=== PATIENT | male | born 1955 | race American Indian/Alaskan Native ===

== ENCOUNTER 2017-03-09 10:54 | Emergency (ER) | payer MEDICAID ==
[2017-03-09 10:58] VITALS: BMI 18.8
[2017-03-09] MEDS ORDERED: Magnesium Sulfate 2 GM in Sodium Chloride 0.9% 100 ML IVPB ONE (11:14)
[2017-03-09] MEDS: Albuterol-Ipratrop 3 mg / 0.5 (3 ml) UD IH SCH ×3 (11:23→11:59)
--- NOTE | 2017-03-09 11:24 | ED PDOC ---
Arrival/HPI - General Chief Complaint: Shortness Of Breath Time Seen by Provider: 03/09/17 10:55 Historian: Patient - History of Present Illness Narrative History of Present Illness (Text): 03/09/17 11:11 A 61 year old male, whose past medical history includes COPD, presents to the emergency department complaining of shortness of breath. Patient reports he was at [facility] yesterday for the same complaint. He says he was given Solu-medrol and Duoneb treatment and Mag and discharged home. Patient states that today he decided to have a cigarette, after which his shortness of breath began again. He notes symptoms are identical to previous COPD exacerbation. He notes a mild post-tussive chest pain but denies any other chest pain, fever, chills, or any other complaints. Patient mentions he did take his 40mg Prednisone this morning and has been using his nebulizer with only mild relief. Time/Duration: Other (yesterday evening) Symptom Onset: Sudden Symptom Course: Unchanged Quality: Other Activities at Onset: Rest Context: Home Past Medical History - Provider Review Nursing Documentation Reviewed: Yes - Infectious Disease Hx of Infectious Diseases: None - Pulmonary Hx Chronic Obstructive Pulmonary Disease (COPD): Yes Other/Comment: current smoker - Musculoskeletal/Rheumatological Hx Back Pain: Yes - Psychiatric Hx Substance Use: No - Anesthesia Hx Anesthesia: No Family/Social History - Physician Review Nursing Documentation Reviewed: Yes Family/Social History: Unknown Family HX Smoking Status: Light Smoker < 10 Cigarettes Daily Hx Alcohol Use: No Hx Substance Use: No Allergies/Home Meds Allergies/Adverse Reactions: Allergies No Known Allergies Allergy (Verified 03/09/17 10:58) Home Medications: Home Meds Medication Instructions Recorded Confirmed Albuterol/Ipratropium [Combivent 1 puff IH DAILY 03/09/17 03/09/17 Respimat] Fluticasone/Salmeterol 500/50 1 puff IH DAILY 03/09/17 03/09/17 [Advair Diskus 500/50] Montelukast [Singulair] 1 tab PO DAILY 03/09/17 03/09/17 Prednisone [Deltasone] 40 mg PO DAILY 03/09/17 03/09/17 Tiotropium [Spiriva] 1 puff IH DAILY 03/09/17 03/09/17 oxyCODONE/Acetaminophen [Percocet 1 tab PO Q4H PRN 03/09/17 03/09/17 5/325 mg Tab] Review of Systems - Review of Systems Constitutional: absent: Fevers Eyes: absent: Vision Changes ENT: absent: Sinus Congestion Respiratory: SOB, Cough, Wheezing. absent: Sputum Cardiovascular: Chest Pain. absent: Palpitations, Edema, Calf Pain, TURNER, Orthopnea, Syncope Gastrointestinal: absent: Abdominal Pain, Constipation, Diarrhea, Nausea, Vomiting Genitourinary Male: absent: Dysuria Musculoskeletal: absent: Back Pain Skin: absent: Rash Neurological: absent: Headache, Dizziness Endocrine: absent: Diaphoresis, Polyuria Psychiatric: absent: Depression Physical Exam Vital Signs Reviewed: Yes Vital Signs Temp Pulse Resp BP Pulse Ox 03/09/17 13:32 97 H 18 119/79 100 03/09/17 12:47 100 H 18 132/70 95 03/09/17 11:07 22 98 03/09/17 11:00 97.5 F L 110 H 22 134/63 98 Temperature: Afebrile Blood Pressure: Normal Pulse: Tachycardic Respiratory Rate: Normal Appearance: Positive for: Well-Appearing, Non-Toxic, Comfortable Pain Distress: None Mental Status: Positive for: Alert and Oriented X 3 - Systems Exam Head: Present: Atraumatic, Normocephalic Pupils: Present: PERRL Extroacular Muscles: Present: EOMI Conjunctiva: Present: Normal Mouth: Present: Moist Mucous Membranes Neck: Present: Normal Range of Motion Respiratory/Chest: Present: Clear to Auscultation, Good Air Exchange, Wheezes ( diffuse). No: Respiratory Distress, Accessory Muscle Use Cardiovascular: Present: Normal S1, S2, Tachycardic. No: Murmurs Abdomen: Present: Normal Bowel Sounds. No: Tenderness, Distention, Peritoneal Signs Back: Present: Normal Inspection Upper Extremity: Present: Normal Inspection. No: Cyanosis, Edema Lower Extremity: Present: Normal Inspection. No: Edema Neurological: Present: GCS=15, CN II-XII Intact, Speech Normal Skin: Present: Warm, Dry, Normal Color. No: Rashes Psychiatric: Present: Alert, Oriented x 3, Normal Insight, Normal Concentration Medical Decision Making ED Course and Treatment: 03/09/17 11:11 Impression: A 61 year old male with shortness of breath. On physical examination the patient has diffuse wheezing Differential Diagnosis include but are not limited to: COPD exacerbation Plan: -- EKG -- Chest X-ray -- Duoneb and Magnesium Sulfate (already had prednisone today) -- Reassess and disposition 03/09/17 13:27 After 4 duonebs and Mg, wheezing is resolved and patient feels better. He is speaking in complete sentences and has no tachypnea and normal O2 sat. He reports that he wants to go home. Cxray negative. Patient has prednisone rx at home. He was instructed to stop smoking. 03/09/17 14:26 03/09/17 14:27 - RAD Interpretation Radiology Orders: 03/09/17 11:14 CHEST PORTABLE [RAD] Stat - Medication Orders Current Medication Orders: Discontinued Medications Albuterol/Ipratropium (Duoneb 3 Mg/0.5 Mg (3 Ml) Ud) 3 ml IH Q15M CLARE Stop: 03/09/17 11:46 Last Admin: 03/09/17 11:59 Dose: 3 ml Magnesium Sulfate 2 gm/ Sodium (Chloride) 104 mls @ 102 mls/hr IVPB ONCE ONE Stop: 03/09/17 12:15 Last Admin: 03/09/17 11:40 Dose: 102 mls/hr ED OBSERVATION Discharge: Yes Date of observation admission: 03/09/17 Time of observation admission: 11:11 - Observation admission statement Patient is being placed in observation because:: Shortness of breath - Goals of Observation Goals of observation are:: symptomatic control - Progress Note Progress Note: 03/09/17 11:12 Smoking Cessation Counseling: The patient was counseled as to the multiple risks to his/her health from continued use of tobacco products. It was explained that continuing to smoke may lead to multiple short and senior care negative health consequences, including but not limited to mouth/esophageal/ lung cancer, COPD, and heart disease. He/she states he/she understands these risks, and also understands the options and resources available to him/her to help him/her stop smoking. Nicotine replacement therapy, local hotlines, and local resources were discussed as viable options for helping him/her stop his/ her tobacco use. The total time spent counseling the patient regarding tobacco cessation was 4 minutes. 03/09/17 11:50 Chest X-ray: Creator : Deon Mike MD COMPARISON: No prior. FINDINGS: LUNGS: No active pulmonary disease. PLEURA: No significant pleural effusion identified, no pneumothorax apparent. CARDIOVASCULAR: Normal. OSSEOUS STRUCTURES: No significant abnormalities. VISUALIZED UPPER ABDOMEN: Normal. OTHER FINDINGS: None. IMPRESSION: No active disease. - Scribe Statement The provider has reviewed the documentation as recorded by the Montyibe Sony Dixon Provider Scribe Attestation: All medical record entries made by the Scribe were at my direction and personally dictated by me. I have reviewed the chart and agree that the record accurately reflects my personal performance of the history, physical exam, medical decision making, and the department course for this patient. I have also personally directed, reviewed, and agree with the discharge instructions and disposition. Disposition/Present on Arrival - Present on Arrival Any Indicators Present on Arrival: No History of DVT/PE: No History of Uncontrolled Diabetes: No Urinary Catheter: No History of Decub. Ulcer: No History Surgical Site Infection Following: None - Disposition Have Diagnosis and Disposition been Completed?: Yes Diagnosis: COPD (chronic obstructive pulmonary disease) Disposition: HOME/ ROUTINE Disposition Time: 11:11 Patient Plan: Discharge Condition: GOOD Discharge Instructions (ExitCare): How to Stop Smoking (ED), COPD (Chronic Obstructive Pulmonary Disease) (ED) Additional Instructions: Take prednisone as prescribed. use albuterol as needed. Return to emergency department if condition worsens. Follow-up with PMD within 2 days. Stop smoking.
[2017-03-09 11:35] VITALS: TEMP 97.5
--- NOTE | 2017-03-09 12:45 | RAD ---
HISTORY: shortness of breath COMPARISON: No prior. FINDINGS: LUNGS: No active pulmonary disease. PLEURA: No significant pleural effusion identified, no pneumothorax apparent. CARDIOVASCULAR: Normal. OSSEOUS STRUCTURES: No significant abnormalities. VISUALIZED UPPER ABDOMEN: Normal. OTHER FINDINGS: None. IMPRESSION: No active disease.
[2017-03-09 12:48] VITALS: RESP 18
[2017-03-09 13:33] VITALS: BP 119/79; PULSE 97; O2SAT 100
--- NOTE | 2017-03-10 10:10 | CARD ---
APPROVED REPORT EKG Measurement Heart [id number] [id number] <Conclusion> Sinus tachycardia Biatrial enlargement NSSTW changes
== END 2017-03-09 13:37 | disposition home or self-care (01) ==
LOC: MERGE 10:54 → ED 10:54
DX: J44.9 Chronic obstructive pulmonary disease, unspecified (principal); Z72.0 Tobacco use
CPT/HCPCS: 71010; 93005; 96365; 99285; J3475

== ENCOUNTER 2018-03-14 12:46 | Emergency (ER) | payer MEDICAID, OTHER ==
[2018-03-14 12:47] VITALS: BMI 18.8
--- NOTE | 2018-03-14 13:04 | ED PDOC ---
Arrival/HPI - General Chief Complaint: Shortness Of Breath Time Seen by Provider: 03/14/18 12:55 Historian: Patient - History of Present Illness Narrative History of Present Illness (Text): 03/14/18 13:01 62 year old male, whose past medical history includes COPD and a hx of intubation, who presents to the emergency department complaining of shortness of breath upon exertion. Patient notes associated nasal congestion and chills. Patient denies any fever, chest pain, shortness of breath, nausea, vomiting, diarrhea, urinary symptoms, neck pain, headache, dizziness, or any other complaints. PMD: Dr. Gregory Jose Time/Duration: Other (today) Symptom Onset: Gradual Symptom Course: Unchanged Activities at Onset: Light Context: Home Past Medical History - Provider Review Nursing Documentation Reviewed: Yes - Infectious Disease Hx of Infectious Diseases: None - Cardiac Hx Hypertension: Yes - Pulmonary Hx Chronic Obstructive Pulmonary Disease (COPD): Yes Other/Comment: current smoker - Endocrine/Metabolic Hx Endocrine Disorders: Yes Hx Diabetes Mellitus Type 2: Yes - Musculoskeletal/Rheumatological Hx Back Pain: Yes - Psychiatric Hx Substance Use: No - Anesthesia Hx Anesthesia: No Hx Anesthesia Reactions: No Hx Malignant Hyperthermia: No - Suicidal Assessment Feels Threatened In Home Enviroment: No Family/Social History - Physician Review Nursing Documentation Reviewed: Yes Family/Social History: Unknown Family HX Smoking Status: Light Smoker < 10 Cigarettes Daily Hx Alcohol Use: No Hx Substance Use: No Substance used: cocaine Allergies/Home Meds Allergies/Adverse Reactions: Allergies No Known Allergies Allergy (Verified 03/01/16 07:31) Home Medications: Home Meds Medication Instructions Recorded Confirmed Symbicort 10.2 ml 06/12/13 05/24/15 Albuterol/Ipratropium [Combivent 1 puff IH DAILY 03/09/17 03/09/17 Respimat] Fluticasone/Salmeterol 500/50 1 puff IH DAILY 03/09/17 03/09/17 [Advair Diskus 500/50] Montelukast [Singulair] 1 tab PO DAILY 03/09/17 03/09/17 Prednisone [Deltasone] 40 mg PO DAILY 03/09/17 03/09/17 Tiotropium [Spiriva] 1 puff IH DAILY 03/09/17 03/09/17 oxyCODONE/Acetaminophen [Percocet 1 tab PO Q4H PRN 03/09/17 03/09/17 5/325 mg Tab] Review of Systems - Physician Review All systems were reviewed & negative as marked: Yes - Review of Systems Constitutional: Normal Eyes: Normal ENT: Sinus Congestion Respiratory: SOB Cardiovascular: Normal. absent: Chest Pain, Palpitations Gastrointestinal: Normal. absent: Abdominal Pain, Diarrhea, Nausea, Vomiting Genitourinary Male: Normal. absent: Dysuria, Frequency Musculoskeletal: Back Pain (from herniated disc (old)). absent: Neck Pain Skin: Normal. absent: Rash Neurological: Normal. absent: Headache, Dizziness Endocrine: Normal Hemo/Lymphatic: Normal Psychiatric: Normal Physical Exam Vital Signs Temp Pulse Resp BP Pulse Ox 03/14/18 15:20 98.4 F 98 H 20 106/64 98 03/14/18 13:02 97.7 F 98 H 19 109/74 100 03/14/18 13:00 20 - Systems Exam Head: Present: Atraumatic, Normocephalic Pupils: Present: PERRL Extroacular Muscles: Present: EOMI Conjunctiva: Present: Normal Mouth: Present: Moist Mucous Membranes Neck: Present: Normal Range of Motion. No: Meningeal Signs, MIDLINE TENDERNESS Respiratory/Chest: Present: Wheezes (diffused wheezing). No: Respiratory Distress, Accessory Muscle Use Cardiovascular: Present: Regular Rate and Rhythm, Normal S1, S2. No: Murmurs Abdomen: No: Tenderness, Distention, Peritoneal Signs Back: Present: Normal Inspection Upper Extremity: Present: Normal Inspection. No: Cyanosis, Edema Lower Extremity: Present: Normal Inspection. No: Edema, CALF TENDERNESS Neurological: Present: GCS=15, CN II-XII Intact, Speech Normal Skin: Present: Warm, Dry, Normal Color. No: Rashes Psychiatric: Present: Alert, Oriented x 3, Normal Insight, Normal Concentration Medical Decision Making ED Course and Treatment: 03/14/18 13:04 Impression: 62 year old male presents to the emergency department complaining of shortness of breath, nasal congestion, and chills. Differential Diagnosis: COPD exacerbation Plan: -- EKG -- Labs -- Chest X-ray -- Duoneb -- SOLU-Medrol -- Reassess and disposition Progress Notes: EKG reviewed, shows Sinus Tachycardia [address]/T wave changes. 03/14/18 13:40 Chest X-ray reviewed, showed: IMPRESSION: No active disease. 03/14/18 14:48 Patient is feeling much better. 98-99% RA. No w/r/r. CTA b/l. Patient states he wants to go home. He was also given percocet one dose for his low back pain. - Lab Interpretations Lab Results: 03/14/18 13:20 03/14/18 13:20 Lab Results 03/14/18 13:20: Sodium 142, Potassium 4.6, Chloride 107, Carbon Dioxide 24, Anion Gap 15, BUN 37 H, Creatinine 1.2, Est GFR ( Amer) > 60, Est GFR ( Non-Af Amer) > 60, Random Glucose 135 H, Calcium 9.0, Magnesium 2.0 03/14/18 13:20: WBC 9.6, RBC 4.37, Hgb 10.8 L, Hct 33.3 L, MCV 76.2 L, MCH 24.7 L, MCHC 32.4, RDW 15.0 H, Plt Count 198, Gran % 76.8 H, Lymph % (Auto) 13.6 L, [place] % (Auto) 9.5 H, Eos % (Auto) 0.1 L, Baso % (Auto) 0.0, Gran # 7.36 H, Lymph # (Auto) 1.3, [place] # (Auto) 0.9 H, Eos # (Auto) 0.0, Baso # (Auto) 0.00 - RAD Interpretation Radiology Orders: 03/14/18 13:01 CHEST PORTABLE [RAD] Stat - Medication Orders Current Medication Orders: Discontinued Medications Albuterol/Ipratropium (Duoneb 3 Mg/0.5 Mg (3 Ml) Ud) 3 ml IH Q15M CLARE Stop: 03/14/18 13:46 Last Admin: 03/14/18 13:21 Dose: 3 ml Methylprednisolone (Solu-Medrol) 125 mg IVP STAT STA Stop: 03/14/18 13:02 Last Admin: 03/14/18 13:20 Dose: 125 mg IVP Administration Document 03/14/18 13:20 JENNI (Rec: 03/14/18 13:20 JENNI [id number]) Charges for Administration # of IVP Administrations 1 Oxycodone/Acetaminophen (Percocet 10/325 Mg Tab) 1 tab PO STAT STA Stop: 03/14/18 14:01 Last Admin: 03/14/18 14:16 Dose: 1 tab [facility] Pain Assessment Document 03/14/18 14:16 JENNI (Rec: 03/14/18 14:16 JENNI [id number]) Pain Reassessment Is this a pain reassessment? No Sleep Is patient sleeping during reassessment? Yes Pain Scale Used Pain Scale Used Numeric Description Description Intermittent Intensity of Pain at present 5 Re-Assess: [facility] Pain Assessment Document 03/14/18 15:16 JENNI (Rec: 03/14/18 15:30 JENNI [id number]) Pain Reassessment Is this a pain reassessment? Yes Sleep Is patient sleeping during reassessment? No Presence of Pain Presence of Pain No - Scribe Statement The provider has reviewed the documentation as recorded by the Scribe Kelli Sheikh All medical record entries made by the Scribe were at my direction and personally dictated by me. I have reviewed the chart and agree that the record accurately reflects my personal performance of the history, physical exam, medical decision making, and the department course for this patient. I have also personally directed, reviewed, and agree with the discharge instructions and disposition. Disposition/Present on Arrival - Present on Arrival Any Indicators Present on Arrival: No History of DVT/PE: No History of Uncontrolled Diabetes: No Urinary Catheter: No History of Decub. Ulcer: No History Surgical Site Infection Following: None - Disposition Have Diagnosis and Disposition been Completed?: Yes Diagnosis: COPD (chronic obstructive pulmonary disease) Disposition: HOME/ ROUTINE Disposition Time: 14:49 Patient Plan: Discharge Condition: IMPROVED Discharge Instructions (ExitCare): Chronic Obstructive Pulmonary Disease (COPD) , Including Emphysema Additional Instructions: RITU DAVIS, thank you for letting us take care of you today. Your provider was Brayan Paula DO and you were treated for COPD Exacerbation. The emergency medical care you received today was directed at your acute symptoms. If you were prescribed any medication, please fill it and take as directed. It may take several days for your symptoms to resolve. Return to the Emergency Department if your symptoms worsen, do not improve, or if you have any other problems. Please contact your doctor or call one of the physicians/clinics you have been referred to that are listed on the Patient Visit Information form that is included in your discharge packet. Bring any paperwork you were given at discharge with you along with any medications you are taking to your follow up visit. Our treatment cannot replace ongoing medical care by a primary care provider outside of the emergency department. Thank you for allowing the [facility] team to be part of your care today. If you had an X-Ray or CT scan: A Radiologist will review the ED reading if any change in treatment is needed we will contact you. If you had a blood, urine, or wound culture: It will take several days for the results, if any change in treatment is needed we will contact you. If you had an STI test: It will take 48 hours for the results. Please call after 1 week if you have not heard back. Prescriptions: Albuterol HFA [Ventolin HFA 90 mcg/actuation (8 g)] 2 puff IH Q4 #1 puff predniSONE [predniSONE Tab] 40 mg PO DAILY #8 tab Referrals: Gregory Jose JD, MD [Primary Care Provider] - Follow up with primary Forms: [employer] (Irish)
[2018-03-14 13:06] VITALS: PULSE 98
[2018-03-14] MEDS: Albuterol-Ipratrop 3 mg / 0.5 (3 ml) UD IH SCH ×2 (13:15→13:21)
[2018-03-14 13:25] LABS: EOS % 0.1 % (1.5-5.0); GRAN # 7.36 (1.4-6.5); GRAN % 76.8 % (50.0-68.0); HEMOGLOBIN 10.8 g/dL (14.0-18.0); LYMPH # 1.3 (1.2-3.4); LYMPH % 13.6 % (22.0-35.0); MEAN CELL VOLUME 76.2 fl (80.0-105.0); MEAN CORPUSCULAR HEMOGLOBIN 24.7 pg (25.0-35.0); MEAN CORPUSCULAR HGB CONC 32.4 g/dl (31.0-37.0); MONO # 0.9 (0.1-0.6); MONO % 9.5 % (1.0-6.0); PLATELET COUNT 198 10^3/uL (120.0-450.0); RBC 4.37 10^6/uL (3.5-6.1); WHITE BLOOD COUNT 9.6 10^3/ul (4.5-11.0)
[2018-03-14 13:35] LABS: BLOOD UREA NITROGEN 37 mg/dL (7-21); GFR AFRICAN-AMERICAN > 60; GFR NON-AFRICAN AMERICAN > 60
--- NOTE | 2018-03-14 13:39 | RAD ---
Date of service: 03/14/2018 HISTORY: copd r/o pna COMPARISON: 03/09/2017 FINDINGS: LUNGS: No active pulmonary disease. PLEURA: No significant pleural effusion identified, no pneumothorax apparent. CARDIOVASCULAR: Normal. OSSEOUS STRUCTURES: No significant abnormalities. VISUALIZED UPPER ABDOMEN: Normal. OTHER FINDINGS: None. IMPRESSION: No active disease.
[2018-03-14] MEDS ORDERED: Oxycodone/Acetaminophen 10/325 mg Tab PO STA (14:00)
[2018-03-14 15:28] VITALS: BP 106/64; RESP 20; TEMP 98.4; O2SAT 98
--- NOTE | 2018-03-14 19:56 | CARD ---
APPROVED REPORT Date of service: 03/14/2018 EKG Measurement Heart [id number] [place] 114P79 [id number] <Conclusion> Sinus tachycardia with premature supraventricular complexes Biatrial enlargement Abnormal ECG
== END 2018-03-14 15:32 | disposition home or self-care (01) ==
LOC: ED 12:46
DX: J44.9 Chronic obstructive pulmonary disease, unspecified (principal); E11.9 Type 2 diabetes mellitus without complications; I10 Essential (primary) hypertension; F17.210 Nicotine dependence, cigarettes, uncomplicated
CPT/HCPCS: 71045; 80048; 83735; 85025; 93005; 96374; 99284; J2930

== ENCOUNTER 2018-05-08 04:15 | Emergency (ER) | payer MEDICAID, OTHER ==
[2018-05-08 04:21] VITALS: BMI 20.5
[2018-05-08] MEDS ORDERED: Albuterol-Ipratrop 3 mg / 0.5 (3 ml) UD ONE (04:31)
[2018-05-08] MEDS ORDERED: Albuterol-Ipratrop 3 mg / 0.5 (3 ml) UD IH STA (04:31)
[2018-05-08 04:34] VITALS: RESP 18; TEMP 98
--- NOTE | 2018-05-08 04:37 | ED PDOC ---
Arrival/HPI - General Chief Complaint: Shortness Of Breath Time Seen by Provider: 05/08/18 04:24 Historian: Patient - History of Present Illness Narrative History of Present Illness (Text): 05/08/18 04:31 62 year old male, whose past medical history includes diabetes, hypertension, COPD, chronic back pain and herniated discs, presents to the emergency department with shortness of breath. Patient states he has had multiple intubations and is constantly short of breath. Patient was discharged from [facility] less than an hour ago, where he was given Solumedrol, magnesium, and duoneb. Patient states he felt shortness of breath again upon going home, so he called 911 again. Patient denies any fever, chills, headache, dizziness, abdominal pain, nausea, vomiting, diarrhea, back pain, neck pain, urinary/bowel changes, or any other complaint. Time/Duration: Prior to Arrival Symptom Onset: Gradual Symptom Course: Unchanged Past Medical History - Provider Review Nursing Documentation Reviewed: Yes - Infectious Disease Hx of Infectious Diseases: None - Cardiac Hx Hypertension: Yes - Pulmonary Hx Chronic Obstructive Pulmonary Disease (COPD): Yes Other/Comment: current smoker - Endocrine/Metabolic Hx Endocrine Disorders: Yes Hx Diabetes Mellitus Type 2: Yes - Musculoskeletal/Rheumatological Hx Back Pain: Yes - Psychiatric Hx Substance Use: No - Anesthesia Hx Anesthesia: No Hx Anesthesia Reactions: No Hx Malignant Hyperthermia: No - Suicidal Assessment Feels Threatened In Home Enviroment: No Family/Social History - Physician Review Nursing Documentation Reviewed: Yes Family/Social History: No Known Family HX Smoking Status: Light Smoker < 10 Cigarettes Daily Hx Alcohol Use: No Hx Substance Use: No Substance used: cocaine Allergies/Home Meds Allergies/Adverse Reactions: Allergies No Known Allergies Allergy (Verified 05/08/18 04:34) Home Medications: Home Meds Medication Instructions Recorded Confirmed Albuterol/Ipratropium [Combivent 1 puff IH DAILY 03/09/17 05/08/18 Respimat] Fluticasone/Salmeterol 500/50 1 puff IH DAILY 03/09/17 05/08/18 [Advair Diskus 500/50] Montelukast [Singulair] 1 tab PO DAILY 03/09/17 05/08/18 Prednisone [Deltasone] 40 mg PO DAILY 03/09/17 05/08/18 Tiotropium [Spiriva] 1 puff IH DAILY 03/09/17 05/08/18 oxyCODONE/Acetaminophen [Percocet 1 tab PO Q4H PRN 03/09/17 05/08/18 5/325 mg Tab] Budesonide/Formoterol Fumarate 1 puff INH PRN PRN 05/08/18 05/08/18 [Symbicort 80-4.5 Mcg Inhaler] Review of Systems - Physician Review All systems were reviewed & negative as marked: Yes - Review of Systems Constitutional: Normal. absent: Fevers, Night Sweats Eyes: Normal ENT: Normal Respiratory: SOB Cardiovascular: Normal Gastrointestinal: Normal. absent: Abdominal Pain, Diarrhea, Nausea, Vomiting Genitourinary Male: Normal. absent: Urinary Output Changes Musculoskeletal: Normal. absent: Back Pain, Neck Pain Skin: Normal Neurological: Normal. absent: Headache, Dizziness Endocrine: Normal Hemo/Lymphatic: Normal Psychiatric: Normal Physical Exam Vital Signs Reviewed: Yes Vital Signs Temp Pulse Resp BP Pulse Ox 05/08/18 05:30 105 H 18 147/88 97 05/08/18 04:33 98 F 112 H 18 132/65 96 05/08/18 04:22 18 Temperature: Afebrile Blood Pressure: Normal Pulse: Tachycardic Respiratory Rate: Normal Appearance: Positive for: Well-Appearing, Non-Toxic, Comfortable Pain Distress: None Mental Status: Positive for: Alert and Oriented X 3 - Systems Exam Head: Present: Atraumatic, Normocephalic Pupils: Present: PERRL Extroacular Muscles: Present: EOMI Conjunctiva: Present: Normal Ears: Present: Normal Mouth: Present: Moist Mucous Membranes Neck: Present: Normal Range of Motion Respiratory/Chest: Present: Wheezes (excretory wheeze diffusely) Cardiovascular: Present: Regular Rate and Rhythm, Normal S1, S2. No: Murmurs Abdomen: No: Tenderness, Distention, Peritoneal Signs Back: Present: Normal Inspection Upper Extremity: Present: Normal Inspection. No: Cyanosis, Edema Lower Extremity: Present: Normal Inspection. No: Edema Neurological: Present: GCS=15, CN II-XII Intact, Speech Normal Skin: Present: Warm, Dry, Normal Color. No: Rashes Psychiatric: Present: Alert, Oriented x 3, Normal Insight, Normal Concentration Medical Decision Making ED Course and Treatment: 05/08/18 04:39 Impression: 62 year old male presents to the emergency department With shortness of breath. Plan: -- Duoneb -- Chest X-ray -- Labs -- Reassess and disposition Prior Visits: Notes and results from previous visits were reviewed. Progress Notes: Duoneb x1 given. 05/08/18 04:41 EKG reviewed, shows: Sinus Tachychardia @114bpm Normal [place], Normal Intervals, No ST or T wave changes. 05/08/18 05:04 Chest X-ray reviewed by me, shows: No acute disease. Labs done. Leukocytosis noted, however patient is on steroids, and just received solumedrol at [facility] prior to him coming to this emergency department. On re-eval patient is sleeping comfortably. HR improved to 105. Patient is not tachypneic or in any respiratory distress. Stable for discharge home at this time. Advised patient to return for any new or worsening symptoms. - Lab Interpretations Lab Results: 05/08/18 04:20 05/08/18 04:20 Lab Results 05/08/18 04:20: Sodium 142, Potassium 4.3, Chloride 104, Carbon Dioxide 28, Anion Gap 14, BUN 30 H, Creatinine 1.0, Est GFR ( Amer) > 60, Est GFR ( Non-Af Amer) > 60, Random Glucose 128 H, Calcium 8.7 05/08/18 04:20: WBC 18.3 H D, RBC 4.52, Hgb 11.1 L, Hct 34.6 L, MCV 76.5 L, MCH 24.6 L, MCHC 32.1, RDW 15.0 H, Plt Count 262, MPV 10.0, Gran % 93.0 H, Lymph % ( Auto) 4.4 L, [place] % (Auto) 2.5, Eos % (Auto) 0.0 L, Baso % (Auto) 0.1, Gran # 17.06 H, Lymph # (Auto) 0.8 L, [place] # (Auto) 0.5, Eos # (Auto) 0.0, Baso # (Auto ) 0.01, Neutrophils % (Manual) Pending, Lymphocytes % (Manual) Pending, Monocytes % (Manual) Pending - RAD Interpretation Radiology Orders: 05/08/18 04:31 CHEST PORTABLE [RAD] Stat - Medication Orders Current Medication Orders: Discontinued Medications Albuterol/Ipratropium (Duoneb 3 Mg/0.5 Mg (3 Ml) Ud) 3 ml IH STAT STA Stop: 05/08/18 04:32 Last Admin: 05/08/18 05:06 Dose: 3 ml - Scribe Statement The provider has reviewed the documentation as recorded by the Jaylen Garcia Provider Scribe Attestation: All medical record entries made by the Scribe were at my direction and personally dictated by me. I have reviewed the chart and agree that the record accurately reflects my personal performance of the history, physical exam, medical decision making, and the department course for this patient. I have also personally directed, reviewed, and agree with the discharge instructions and disposition. Disposition/Present on Arrival - Present on Arrival Any Indicators Present on Arrival: No History of DVT/PE: No History of Uncontrolled Diabetes: No Urinary Catheter: No History of Decub. Ulcer: No History Surgical Site Infection Following: None - Disposition Have Diagnosis and Disposition been Completed?: Yes Diagnosis: COPD (chronic obstructive pulmonary disease) Disposition: HOME/ ROUTINE Disposition Time: 05:30 Patient Problems: Current Active Problems Problem Status Onset COPD (chronic obstructive pulmonary disease) Acute Condition: FAIR Discharge Instructions (ExitCare): Chronic Obstructive Pulmonary Disease (COPD) , Including Emphysema Additional Instructions: RITU DAVIS, thank you for letting us take care of you today. Your provider was Syl Deluca MD and you were treated for shortness of breath. The emergency medical care you received today was directed at your acute symptoms. If you were prescribed any medication, please fill it and take as directed. It may take several days for your symptoms to resolve. Return to the Emergency Department if your symptoms worsen, do not improve, or if you have any other problems. Please contact your doctor or call one of the physicians/clinics you have been referred to that are listed on the Patient Visit Information form that is included in your discharge packet. Bring any paperwork you were given at discharge with you along with any medications you are taking to your follow up visit. Our treatment cannot replace ongoing medical care by a primary care provider outside of the emergency department. Thank you for allowing the Critical access hospital team to be part of your care today. If you had an X-Ray or CT scan: A Radiologist will review the ED reading if any change in treatment is needed we will contact you. If you had a blood, urine, or wound culture: It will take several days for the results, if any change in treatment is needed we will contact you. If you had an STI test: It will take 48 hours for the results. Please call after 1 week if you have not heard back. Referrals: Gregory Jose JD, MD [Primary Care Provider] - Follow up with primary Forms: [employer] (H[place]ian)
[2018-05-08 05:12] LABS: BASO # 0.01 K/mm3 (0.0-2.0); BASO % 0.1 % (0.0-3.0); GRAN # 17.06 (1.4-6.5); HEMOGLOBIN 11.1 g/dL (14.0-18.0); LYMPH # 0.8 (1.2-3.4); LYMPH % 4.4 % (22.0-35.0); MEAN CELL VOLUME 76.5 fl (80.0-105.0); MEAN CORPUSCULAR HEMOGLOBIN 24.6 pg (25.0-35.0); MEAN CORPUSCULAR HGB CONC 32.1 g/dl (31.0-37.0); MONO # 0.5 (0.1-0.6); MONO % 2.5 % (1.0-6.0); PLATELET COUNT 262 10^3/uL (120.0-450.0); RBC 4.52 10^6/uL (3.5-6.1); WHITE BLOOD COUNT 18.3 10^3/ul (4.5-11.0)
[2018-05-08 05:17] LABS: BLOOD UREA NITROGEN 30 mg/dL (7-21); CALCIUM 8.7 mg/dL (8.4-10.5); GFR NON-AFRICAN AMERICAN > 60
[2018-05-08 05:31] VITALS: O2SAT 97
[2018-05-08 06:47] LABS: BAND 1 % (0-2); HYPOCHROMIA SLIGHT; LYMPHOCYTE 7 % (22.0-35.0); MONOCYTE 3 % (1.0-6.0); NEUTROPHIL 89 % (50.0-70.0); NUCLEATED RED BLOOD CELL 4 %; PLATELET ESTIMATE NORMAL (NORMAL)
[2018-05-08 06:48] LABS: OVALOCYTES SLIGHT; SCHISTOCYTES SLIGHT; TARGET CELLS SLIGHT
--- NOTE | 2018-05-08 08:36 | RAD ---
Date of service: 05/08/2018 HISTORY: dyspnea COMPARISON: 03/14/2018 FINDINGS: LUNGS: No active pulmonary disease. PLEURA: No significant pleural effusion identified, no pneumothorax apparent. CARDIOVASCULAR: Normal. OSSEOUS STRUCTURES: No significant abnormalities. VISUALIZED UPPER ABDOMEN: Normal. OTHER FINDINGS: None. IMPRESSION: No active disease.
[2018-05-08 20:43] VITALS: BP 140/86; PULSE 14
--- NOTE | 2018-05-08 21:36 | CARD ---
APPROVED REPORT Date of service: 05/08/2018 EKG Measurement Heart [id number] <Conclusion> Sinus tachycardia with fusion complexes Biatrial enlargement Low voltage QRS Abnormal ECG
== END 2018-05-08 07:00 | disposition home or self-care (01) ==
LOC: ED 04:15
DX: J44.9 Chronic obstructive pulmonary disease, unspecified (principal); E11.9 Type 2 diabetes mellitus without complications; I10 Essential (primary) hypertension; F17.210 Nicotine dependence, cigarettes, uncomplicated

== ENCOUNTER 2018-05-08 07:45 | Emergency (ER) | payer MEDICAID ==
[2018-05-08 07:45] VITALS: BMI 20.5
--- NOTE | 2018-05-08 08:29 | ED PDOC ---
Arrival/HPI - General Historian: Patient - History of Present Illness Time/Duration: 1-3 hours Symptom Onset: Gradual Symptom Course: Unchanged Quality: Other (short of breath) Severity Level: 8 Activities at Onset: Rest Context: Walking <MoisesricardoVargas - Last Filed: 05/08/18 12:56> <Ashley Interiano - Last Filed: 05/08/18 18:35> - General Chief Complaint: Shortness Of Breath Time Seen by Provider: 05/08/18 07:50 - History of Present Illness Narrative History of Present Illness (Text): 05/08/18 08:31 CC: Shortness of Breath HPI: Mr. Hernandez is a 62 year old male with a past medical history of severe COPD on multiple inhalers and PO steroids, chronic lower back pain 2/2 herniated disks on Percocet for years, DM2 on insulin, who presents with intractable shortness of breath. Patient reports multiple hospital and ER admissions over the past few months at [facility], other unknown [place] hospitals, and most recently here [place] [facility] [place]. Patient states that despite respiratory treatments, Magnesium, solu-medrol 120 mg IV at [facility], and multiple respiratory treatments here at [facility] at his recent admission earlier this morning, patient states his breathing has not improved much even at rest. Patient states that he called the ambulance after the [facility] transportation dropped him off at home around 6am, but before he even went inside, felt short of breath, anxious, and called the ambulance to return to bring him to [facility]. Patient states he was recently diagnosed with anxiety for which he takes Xanax. Patient has been intubated 4 times, most recently 1.5 years ago. Patient does not check his sugars regularly, as the patient is in and out of the hospital and states he gets his sugars checked there. Patient reports he takes insulin occasionally when his sugars rise above 250, but ran out of syringes a few weeks ago. Patient denies chest pain, palpitations, cough, fevers, chills, recent infections. PMHx: severe COPD on multiple inhalers and PO steroids, chronic lower back pain 2/2 herniated disks on Percocet for years, DM2 on insulin PSHx: denies All: NKDA Social: smokes tobacco 1/2 pack per day for years, recently cut down from full pack a day Meds: Combivent (has taken advair, singulair, spiriva in past) duonebs, thephylline, prednisone as needed PMD: Dr. Gregory Jose (Vargas Guzman) Past Medical History - Provider Review Nursing Documentation Reviewed: Yes - Travel History Have you recently traveled outside [place] w/in the past 3 mons?: No - Infectious Disease Hx of Infectious Diseases: None - Cardiac Hx Hypertension: Yes - Pulmonary Hx Chronic Obstructive Pulmonary Disease (COPD): Yes Other/Comment: current smoker - Endocrine/Metabolic Hx Endocrine Disorders: Yes Hx Diabetes Mellitus Type 2: Yes - Musculoskeletal/Rheumatological Hx Back Pain: Yes - Psychiatric Hx Substance Use: No - Anesthesia Hx Anesthesia: No Hx Anesthesia Reactions: No Hx Malignant Hyperthermia: No - Suicidal Assessment Feels Threatened In Home Enviroment: No <Vargas Guzman - Last Filed: 05/08/18 12:56> Family/Social History - Physician Review Nursing Documentation Reviewed: Yes Family/Social History: No Known Family HX Smoking Status: Light Smoker < 10 Cigarettes Daily Hx Alcohol Use: No Hx Substance Use: No Substance used: cocaine <Vargas Guzman - Last Filed: 05/08/18 12:56> Allergies/Home Meds <Vargas Guzman - Last Filed: 05/08/18 12:56> <Ashley Interiano - Last Filed: 05/08/18 18:35> Allergies/Adverse Reactions: Allergies No Known Allergies Allergy (Verified 05/08/18 04:34) Home Medications: Home Meds Medication Instructions Recorded Confirmed Montelukast [Singulair] 10 mg PO DAILY 03/09/17 05/08/18 Fluticasone/Vilanterol [Breo 1 each IH DAILY 05/08/18 05/08/18 Ellipta 200-25 Mcg INH] Oxycodone HCl/Acetaminophen 1 tab PO Q6H PRN 05/08/18 05/08/18 [Endocet 325 mg-10 mg] Theophylline [Cr-Dur] 200 mg PO BID 05/08/18 05/08/18 Umeclidinium [place] [Incruse 1 actuation INH DAILY 05/08/18 05/08/18 Ellipta] Varenicline Tartrate [Chantix] 1 mg PO DAILY 05/08/18 05/08/18 predniSONE [predniSONE Tab] 20 mg PO BID 05/08/18 05/08/18 Review of Systems - Physician Review All systems were reviewed & negative as marked: Yes - Review of Systems Constitutional: Normal Eyes: Normal ENT: Normal Respiratory: SOB, Wheezing. absent: Cough, Sputum Cardiovascular: Normal, Palpitations, Orthopnea. absent: Chest Pain, Edema, Calf Pain, Syncope Gastrointestinal: Normal. absent: Abdominal Pain, Constipation, Appetite Changes, Hematochezia Skin: Normal Neurological: Headache, Dizziness Endocrine: Normal Hemo/Lymphatic: Normal Psychiatric: Anxiety <[facility],Vargas - Last Filed: 05/08/18 12:56> Physical Exam Vital Signs Reviewed: Yes Temperature: Afebrile Blood Pressure: Normal Pulse: Tachycardic Respiratory Rate: Normal Appearance: Positive for: Well-Appearing, Non-Toxic Pain Distress: Mild (chronic lower back pain) Mental Status: Positive for: Alert and Oriented X 3 - Systems Exam Head: Present: Atraumatic, Normocephalic Pupils: Present: PERRL Extroacular Muscles: Present: EOMI Conjunctiva: Present: Normal Mouth: Present: Moist Mucous Membranes Neck: Present: Normal Range of Motion Respiratory/Chest: Present: Good Air Exchange, Wheezes (diffuse bilateral). No : Respiratory Distress, Accessory Muscle Use, Tender to Palpation Cardiovascular: Present: Normal S1, S2, Tachycardic Abdomen: Present: Normal Bowel Sounds. No: Tenderness, Distention, Peritoneal Signs, Rebound, Guarding, Rovsing's Sign Present Back: Present: Midline Tenderness Upper Extremity: Present: Normal Inspection. No: Tenderness, Swelling Lower Extremity: Present: Normal Inspection, NORMAL PULSES, Normal ROM. No: Edema, CALF TENDERNESS, Tenderness Neurological: Present: GCS=15, CN II-XII Intact, Speech Normal Skin: Present: Warm, Dry, Normal Color. No: Rashes Psychiatric: Present: Alert, Oriented x 3, Normal Insight, Normal Concentration <Zeffren,Vargas - Last Filed: 05/08/18 12:56> Vital Signs Temp Pulse Resp BP Pulse Ox 05/08/18 14:03 98 F 98 H 18 135/90 98 05/08/18 11:42 98.9 F 113 H 22 139/87 05/08/18 10:41 115 H 20 139/87 99 05/08/18 10:03 98.2 F 86 18 121/67 100 05/08/18 08:00 20 05/08/18 07:53 98.4 F 107 H 19 138/92 H 97 Medical Decision Making <Vargas Guzman - Last Filed: 05/08/18 12:56> - RAD Interpretation Spanish Literature Professor: Radiologist - EKG Interpretation Interpreted by ED Physician: Yes Type: 12 lead EKG <Ashley Interiano - Last Filed: 05/08/18 18:35> ED Course and Treatment: Impression: 62 year old male current 1/2 pack smoker with COPD exacerbation. Plan: - duonebs - SOlu-medrol 60 mg IVP - CBC - CMP - EKG - Trop - Percocet 05/08/18 09:28 Reassessment: Some Improvement from steroids and duoneb treatment. Will continue resp. treatment and patient will be admitted to telemetry under hospitalist service. 05/08/18 10:45 Reassessment: Patient reports much improvement from steroids and duo-nebs. Saturating well on 2 L NC. Bilateral wheezes present but improved. (Vargas Guzman) 05/08/18 09:31 In agreement with resident note, which includes further HPI details. Patient was seen and evaluated with resident, came up with plan and treatment together. Patient's past visits were reviewed, which shows he had recently been discharged from this facility earlier this morning. He reports he began to feel short of breath upon leaving and thus presented back to the Emergency department for evaluation. He denies chest pain and he also denies any pleuritic chest pain. He does admit to smoking. On exam patient has bilateral diffuse expiratory wheezing. Nasal cannula O2 saturation is at 100% and respiratory rate is 20. Chest X-ray from earlier visit was reviewed and shows no active disease. Patient has elevated WBC count, which I suspect is from chronic steroid usage. He is currently afebrile and not septic. Additional nebulizers were ordered as well as additional IV steroids. Discussed case with PMD, who requests admission to hospitalist service. He complains of back pain which is palpable on exam and described as chronic. No focal weakness noted. No urinary symptoms described. Case d/w patient's PMD who requests admission to hospitalist service. Patient agreeable to treatment plan. No accessory muscle usage or severe distress noted, but persistent wheezing noted despite multiple nebs, steroids. No chest pain. EKG reviewed from 420. He reports symptoms as similar to initial presentation with no new pain or discomfort. (Ashley Interiano) - Lab Interpretations Lab Results: 05/08/18 09:00 05/08/18 09:00 Lab Results 05/08/18 11:59: POC Glucose (mg/dL) 209 H 05/08/18 09:00: TSH 3rd Generation 0.13 L 05/08/18 09:00: Phosphorus 3.2, Magnesium 2.5 H 05/08/18 09:00: Sodium 140, Potassium 4.4, Chloride 104, Carbon Dioxide 28, Anion Gap 13, BUN 29 H, Creatinine 0.9, Est GFR ( Amer) > 60, Est GFR ( Non-Af Amer) > 60, Random Glucose 122 H, Calcium 8.5, Total Bilirubin 0.3, AST 30, ALT 28, Alkaline Phosphatase 45, Troponin I < 0.01, Total Protein 6.5, Albumin 3.9, Globulin 2.6, Albumin/Globulin Ratio 1.5 05/08/18 09:00: WBC 14.7 H, RBC 4.29, Hgb 10.5 L, Hct 32.7 L, MCV 76.2 L, MCH 24.5 L, MCHC 32.1, RDW 14.8 H, Plt Count 248, MPV 10.0, Gran % 90.6 H, Lymph % ( Auto) 5.1 L, [place] % (Auto) 4.2, Eos % (Auto) 0.0 L, Baso % (Auto) 0.1, Gran # 13.35 H, Lymph # (Auto) 0.8 L, [place] # (Auto) 0.6, Eos # (Auto) 0.0, Baso # (Auto ) 0.01 - EKG Interpretation EKG Interpretation (Text): 05/08/18 18:33 EKG from 421 sinus tachycardia with fusion complexes rate of 114 (Ashley Interiano) - Medication Orders Current Medication Orders: Discontinued Medications Albuterol/Ipratropium (Duoneb 3 Mg/0.5 Mg (3 Ml) Ud) 3 ml IH Q15M CLARE Stop: 05/08/18 09:01 Last Admin: 05/08/18 09:06 Dose: 3 ml Albuterol/Ipratropium (Duoneb 3 Mg/0.5 Mg (3 Ml) Ud) 3 ml IH Q2H PRN PRN Reason: Shortness of Breath Albuterol/Ipratropium (Duoneb 3 Mg/0.5 Mg (3 Ml) Ud) 3 ml IH [id number] [facility] Last Admin: 05/08/18 11:30 Dose: 3 ml Enoxaparin Sodium (Lovenox) 40 mg SC DAILY CLARE PRN Reason: Protocol Last Admin: 05/08/18 10:25 Dose: Potassium Chloride 30 meq/ (Sodium Chloride) 1,015 mls @ 100 mls/hr IV .Q10H9M [facility] Last Admin: 05/08/18 10:38 Dose: 100 mls/hr eMAR Start Stop Document 05/08/18 10:38 SRE (Rec: 05/08/18 10:39 SRE [id number]) Intravenous Solution Start Date 05/08/18 Start Time 10:39 End Date 05/08/18 End time 20:40 Total Infusion Time 601 Azithromycin (Zithromax 500mg In Ns) 500 mg in 250 mls @ 167 mls/hr IVPB DAILY CLARE PRN Reason: Protocol Last Admin: 05/08/18 10:11 Dose: 167 mls/hr eMAR Start Stop Document 05/08/18 10:11 SRE (Rec: 05/08/18 10:11 SRE [id number]) Intravenous Solution Start Date 05/08/18 Start Time 10:11 End Date 05/08/18 End time 11:45 Total Infusion Time 94 Insulin Human Regular (Humulin R Low) 0 units SC ACHS CLARE PRN Reason: Protocol Last Admin: 05/08/18 12:15 Dose: 2 units Subcutaneous Administrations Document 05/08/18 12:15 SRE (Rec: 05/08/18 12:16 SRE [id number]) Injection Site MAR Injection Site Left Arm Charges for Administration # of Subcutaneous Administrations 1 Methylprednisolone (Solu-Medrol) 60 mg IVP STAT STA Stop: 05/08/18 08:24 Last Admin: 05/08/18 08:55 Dose: 65 mg IVP Administration Document 05/08/18 08:55 SRE (Rec: 05/08/18 08:55 SRE [id number]) Charges for Administration # of IVP Administrations 1 Methylprednisolone (Solu-Medrol) 40 mg IVP Q12 [facility] Last Admin: 05/08/18 10:06 Dose: Oxycodone/Acetaminophen (Percocet 5/325 Mg Tab) 1 tab PO STAT STA Stop: 05/08/18 09:03 Last Admin: 05/08/18 09:09 Dose: 1 tab [facility] Pain Assessment Document 05/08/18 09:09 SRE (Rec: 05/08/18 09:09 [facility] [id number]) Pain Reassessment Is this a pain reassessment? Yes Sleep Is patient sleeping during reassessment? No Presence of Pain Presence of Pain Yes Pain Scale Used Pain Scale Used Numeric Location Pain Location Body Site Back Description Description Intermittent Re-Assess: [facility] Pain Assessment Document 05/08/18 10:09 SRE (Rec: 05/08/18 10:40 [facility] [id number]) Pain Reassessment Is this a pain reassessment? Yes Sleep Is patient sleeping during reassessment? No Presence of Pain Presence of Pain Yes Pain Scale Used Pain Scale Used Numeric Location Pain Location Body Site Back Description Description Intermittent Pantoprazole Sodium (Protonix Ec Tab) 40 mg PO 0600 CLARE <Vargas Guzman - Last Filed: 05/08/18 12:56> - PA / SHEET MANUFACTURING SUPERVISOR / Resident Statement MD/DO has reviewed & agrees with the documentation as recorded. MD/DO has examined the patient and agrees with the treatment plan. - Scribe Statement The provider has reviewed the documentation as recorded by the Scribe <Ashley Interiano - Last Filed: 05/08/18 18:35> - Scribe Statement Sandhya Gilliland. All medical record entries made by the Scribe were at my direction and personally dictated by me. I have reviewed the chart and agree that the record accurately reflects my personal performance of the history, physical exam, medical decision making, and the department course for this patient. I have also personally directed, reviewed, and agree with the discharge instructions and disposition. (Ashley Interiano) Disposition/Present on Arrival - Present on Arrival Any Indicators Present on Arrival: No History of DVT/PE: No History of Uncontrolled Diabetes: No Urinary Catheter: No History of Decub. Ulcer: No History Surgical Site Infection Following: None - Disposition Have Diagnosis and Disposition been Completed?: Yes Disposition Time: 08:30 Patient Plan: Admission <Vargas Guzman - Last Filed: 05/08/18 12:56> <Ashley Interiano - Last Filed: 05/08/18 18:35> - Disposition Diagnosis: COPD (chronic obstructive pulmonary disease), COPD exacerbation, COPD exacerbation Disposition: HOSPITALIZED Condition: FAIR
[2018-05-08] MEDS: Albuterol-Ipratrop 3 mg / 0.5 (3 ml) UD IH SCH ×3 (08:40→09:06)
[2018-05-08] MEDS ORDERED: Oxycodone/Acetaminophen 5/325 mg Tab PO STA (09:02)
[2018-05-08 09:10] LABS: BASO # 0.01 K/mm3 (0.0-2.0); BASO % 0.1 % (0.0-3.0); GRAN # 13.35 (1.4-6.5); GRAN % 90.6 % (50.0-68.0); HEMOGLOBIN 10.5 g/dL (14.0-18.0); LYMPH # 0.8 (1.2-3.4); LYMPH % 5.1 % (22.0-35.0); MEAN CELL VOLUME 76.2 fl (80.0-105.0); MEAN CORPUSCULAR HEMOGLOBIN 24.5 pg (25.0-35.0); MEAN CORPUSCULAR HGB CONC 32.1 g/dl (31.0-37.0); MONO # 0.6 (0.1-0.6); MONO % 4.2 % (1.0-6.0); RBC 4.29 10^6/uL (3.5-6.1); RED CELL DISTRIBUTION WIDTH 14.8 % (11.5-14.5); WHITE BLOOD COUNT 14.7 10^3/ul (4.5-11.0)
[2018-05-08 09:25] LABS: ALB/GLOB RATIO 1.5 (1.1-1.8); ALBUMIN 3.9 g/dL (3.0-4.8); ALT/SGPT 28 U/L (7-56); AST/SGOT 30 U/L (17-59); BLOOD UREA NITROGEN 29 mg/dL (7-21); CALCIUM 8.5 mg/dL (8.4-10.5); GFR NON-AFRICAN AMERICAN > 60
[2018-05-08 09:37] LABS: TROPONIN I < 0.01 ng/mL
[2018-05-08] MEDS ORDERED: Albuterol-Ipratrop 3 mg / 0.5 (3 ml) UD IH PRN (09:40)
[2018-05-08] MEDS ORDERED: Potassium Chloride 30 MEQ in Sodium Chloride 0.9% 1,000 ML IV SCH (09:45)
[2018-05-08] MEDS ORDERED: MethylPREDNISolone 40 mg Vial IVP SCH (10:00)
[2018-05-08] MEDS ORDERED: Azithromycin 500MG/NS 250ml 500 MG/250 ML BAG IVPB SCH (10:00)
[2018-05-08] MEDS: Enoxaparin 40 mg Syringe SC SCH ×2 (10:12→10:25)
[2018-05-08] MEDS ORDERED: Albuterol-Ipratrop 3 mg / 0.5 (3 ml) UD IH SCH (11:30)
[2018-05-08] MEDS ORDERED: Insulin Reg-LOW-Coverage SC SCH (11:30)
[2018-05-08] MEDS ORDERED: Insulin Regular 1 UNITS/0.01 ML ML ONE (12:14)
--- NOTE | 2018-05-08 13:42 | CP.PCM.HP ---
<Robin Pino - Last Filed: 05/08/18 14:05> History of Present Illness - History of Present Illness History of Present Illness: 62 year old male with a past medical history of severe COPD on multiple inhalers and PO steroids, chronic lower back pain 2/2 herniated disks on Percocet for years, DM2 on insulin, who presents with intractable shortness of breath. Patient reports multiple hospital and ER admissions over the past few months at [facility] [place], other unknown [place] hospitals, and most recently here at [facility] [place]. Patient states that despite respiratory treatments, Magnesium, solu- medrol 120 mg IV at [facility] [place], and multiple respiratory treatments here at [facility] [place] at his recent admission earlier this morning, patient states his breathing has not improved much even at rest. Patient states that he called the ambulance after the [facility] transportation dropped him off at home around 6am, but before he even went inside, felt short of breath, anxious, and called the ambulance to return to bring him to [facility] [place]. Pt states he was recently diagnosed with anxiety for which he takes Xanax. Patient has been intubated 4 times, most recently 1.5 years ago. Patient does not check his sugars regularly, as the patient is in and out of the hospital and states he gets his sugars checked there. Reports he takes insulin occasionally when his sugars rise above 250, but ran out of syringes a few weeks ago. PMhx: severe COPD on multiple inhalers and PO steroids, chronic lower back pain 2/2 herniated disks on Percocet for years, DM2 on insulin PSHx: denies All: NKDA Meds: Combivent (has taken advair, singulair, spiriva in past) duonebs, thephylline, prednisone as needed Social: smokes tobacco 1/2 pack per day for years, recently cut down from full pack a day PMD: Dr. Gregory Jose 12-point ROS obtained, as per HPI, otherwise neg as per pt. Present on Admission - Present on Admission Any Indicators Present on Admission: Yes History of DVT/PE: No History of Uncontrolled Diabetes: Yes Urinary Catheter: No Decubitus Ulcer Present: No History Surgical Site Infection Following: None Review of Systems - Constitutional Constitutional: As Per HPI, Fatigue. absent: Night Sweats - Cardiovascular Cardiovascular: absent: Chest Pain, Chest Pain at Rest - Respiratory Respiratory: Dyspnea on Exertion, Wheezing - Gastrointestinal Gastrointestinal: absent: Abdominal Pain, Change in Bowel Habits, Constipation, Diarrhea - Musculoskeletal Musculoskeletal: absent: Abnormal Gait, Back Pain, Joint Swelling - Integumentary Integumentary: absent: Rash Past Patient History - Infectious Disease Hx of Infectious Diseases: None - Past Social History Smoking Status: Light Smoker < 10 Cigarettes Daily - CARDIAC Hx Hypertension: Yes - PULMONARY Hx Chronic Obstructive Pulmonary Disease (COPD): Yes Other/Comment: current smoker - ENDOCRINE/METABOLIC Hx Endocrine Disorders: Yes Hx Diabetes Mellitus Type 2: Yes - MUSCULOSKELETAL/RHEUMATOLOGICAL Hx Back Pain: Yes - PSYCHIATRIC Hx Substance Use: No - SURGICAL HISTORY Hx Surgeries: No - ANESTHESIA Hx Anesthesia: No Hx Anesthesia Reactions: No Hx Malignant Hyperthermia: No Meds Allergies/Adverse Reactions: Allergies Allergy/AdvReac Type Severity Reaction Status Date / Time No Known Allergies Allergy Verified 05/08/18 04:34 Physical Exam - Constitutional Appears: Non-toxic, No Acute Distress - Head Exam Head Exam: ATRAUMATIC, NORMAL INSPECTION - Eye Exam Eye Exam: EOMI, Normal appearance, PERRL - ENT Exam ENT Exam: Mucous Membranes Moist, Normal Oropharynx - Respiratory Exam Respiratory Exam: Decreased Breath Sounds, Wheezes. absent: Accessory Muscle Use, Chest Wall Tenderness - Cardiovascular Exam Cardiovascular Exam: REGULAR RHYTHM, +S1, +S2 - GI/Abdominal Exam GI & Abdominal Exam: Normal Bowel Sounds, Soft. absent: Distended, Rebound, Tenderness - Extremities Exam Extremities exam: Positive for: full ROM, normal capillary refill, normal inspection, pedal pulses present. Negative for: pedal edema - Neurological Exam Neurological exam: Alert, CN II-XII Intact, Normal Gait, Oriented x3 - Skin Skin Exam: Dry, Intact, Normal Color, Warm Results - Vital Signs Recent Vital Signs: Last Vital Signs Temp 98.9 F 05/08/18 11:42 Pulse 113 H 05/08/18 11:42 Resp 22 05/08/18 11:42 BP 139/87 05/08/18 11:42 Pulse Ox 99 05/08/18 10:41 - Labs Result Diagrams: 05/08/18 09:00 05/08/18 09:00 Labs: Laboratory Results - last 24 hr 05/08/18 11:59 POC Glucose (mg/dL) 209 H Assessment & Plan - Assessment and Plan (Free Text) Assessment: 62 y o male PMhx severe COPD on multiple inhalers and PO steroids, chronic lower back pain 2/2 herniated disks on Percocet for years, DM2 on insulin, presents with worsening shortness of breath, not improved with multiple treatments in ED. Pt admitted for COPD exacerbation. Plan: COPD Exacerbation Leukocytosis on admission labs Duonebs q 2 h prn Duonebs q 4 h Solu-Medrol 40 mg IVP q 12 h Azithromycin 500 mg IVPB daily F/u EKG, troponins Pending blood and sputum cxs Keep O2 sat > 92%, prn oxygen Hx DM Insulin sliding scale Trend fingersticks inpatient Hx Chronic lower back pain 2/2 herniated disks Percocet prn Diet: heart healthy GI ppx: Protonix DVT ppx: Lovenox Pt seen, examined with, and plan discussed with Dr. Sarmiento, attending. Addendum: After discussion with patient over risks and benefits of inpatient admission, including but not limited to treating COPD exacerbation, worsening of shortness of breath, hypoxia, possible , pt decided to sign out of the hospital against medical advice. <Radha Sarmiento - Last Filed: 05/08/18 15:50> Results - Vital Signs Recent Vital Signs: Last Vital Signs Temp 98 F 05/08/18 14:03 Pulse 98 H 05/08/18 14:03 Resp 18 05/08/18 14:03 BP 135/90 05/08/18 14:03 Pulse Ox 98 05/08/18 14:03 - Labs Result Diagrams: 05/08/18 09:00 05/08/18 09:00 Labs: Laboratory Results - last 24 hr 05/08/18 05/08/18 05/08/18 09:00 09:00 09:00 WBC 14.7 H RBC 4.29 Hgb 10.5 L Hct 32.7 L MCV 76.2 L MCH 24.5 L MCHC 32.1 RDW 14.8 H Plt Count 248 MPV 10.0 Gran % 90.6 H Lymph % (Auto) 5.1 L [place] % (Auto) 4.2 Eos % (Auto) 0.0 L Baso % (Auto) 0.1 Gran # 13.35 H Lymph # (Auto) 0.8 L [place] # (Auto) 0.6 Eos # (Auto) 0.0 Baso # (Auto) 0.01 Sodium 140 Potassium 4.4 Chloride 104 Carbon Dioxide 28 Anion Gap 13 BUN 29 H Creatinine 0.9 Est GFR ( Amer) > 60 Est GFR (Non-Af Amer) > 60 POC Glucose (mg/dL) Random Glucose 122 H Calcium 8.5 Phosphorus 3.2 Magnesium 2.5 H Total Bilirubin 0.3 AST 30 ALT 28 Alkaline Phosphatase 45 Troponin I < 0.01 Total Protein 6.5 Albumin 3.9 Globulin 2.6 Albumin/Globulin Ratio 1.5 TSH 3rd Generation 05/08/18 05/08/18 09:00 11:59 WBC RBC Hgb Hct MCV MCH MCHC RDW Plt Count MPV Gran % Lymph % (Auto) [place] % (Auto) Eos % (Auto) Baso % (Auto) Gran # Lymph # (Auto) [place] # (Auto) Eos # (Auto) Baso # (Auto) Sodium Potassium Chloride Carbon Dioxide Anion Gap BUN Creatinine Est GFR ( Amer) Est GFR (Non-Af Amer) POC Glucose (mg/dL) 209 H Random Glucose Calcium Phosphorus Magnesium Total Bilirubin AST ALT Alkaline Phosphatase Troponin I Total Protein Albumin Globulin Albumin/Globulin Ratio TSH 3rd Generation 0.13 L Attending/Attestation - Attestation I have personally seen and examined this patient.: Yes I have fully participated in the care of the patient.: Yes I have reviewed all pertinent clinical information: Yes Notes (Text): 05/08/18 15:47 Medical record note made by the resident after discussion with my direction and input after the patient was personally seen and examined by me. I have reviewed the chart and agree that the record accurately reflects by personal performance of the history, physical exam, data review, and medical decision-making, in the course for the patient. I have also personally directed the plan of care. 62 yrs old male with PMH of COPD on home oxygen,NIDDM,Chronic smoking, chronic lower back pain 2/2 herniated disks and non compliance was admitted with COPD exacerbation, started on Neb/steroid and antibiotics. Patient has decided to sigh out against medical advance.He is alert, awake and oriented.The issue was discussed with in detail. He has signed AMA. Prognosis is guarded. 05/08/18 15:50
[2018-05-08 14:04] VITALS: BP 135/90; PULSE 98; RESP 18; TEMP 98; O2SAT 98
[2018-05-09] MEDS ORDERED: Pantoprazole 40 mg EC Tab PO SCH (06:00)
== END 2018-05-08 14:03 | disposition left against medical advice (07) ==
LOC: ED 07:45 → ERH 09:05 → UNDOADMIN 09:05
DX: J44.1 Chronic obstructive pulmonary disease with (acute) exacerbation (principal); E11.9 Type 2 diabetes mellitus without complications; Z79.4 Long term (current) use of insulin; F17.210 Nicotine dependence, cigarettes, uncomplicated; I10 Essential (primary) hypertension
CPT/HCPCS: 80053; 82948; 83735; 84100; 84443; 84484; 85025; 87040; 96361; 96365; 96366; 96375; 99285; J0456; J2930; J7030